=== PATIENT | male | born 1960 | race Caucasian/White ===

== ENCOUNTER 2017-02-18 03:30 | Emergency (ER) | payer OTHER ==
--- NOTE | 2017-02-18 03:42 | PDOC ---
History of Present Illness - General Chief Complaint: Urinary Problem Stated Complaint: UNABLE TO VOID History Source: Patient Exam Limitations: No Limitations - History of Present Illness Initial Comments: 02/18/17 03:39 This is a 48-year-old male who comes in complaining of unable to void. Patient last voided about 200 last night. Patient had elevated prostate biopsy today. Patient otherwise denies any fevers or chills. Band-Aid is healthy. patient has a history of similar problems in the past but have never required a Morales. Patient said he usually is able to relax and then able to void. PAST MEDICAL HISTORY: no significant history PAST SURGICAL HISTORY: no significant history FAMILY HISTORY: no pertinant history SOCIAL HISTORY: Pt lives with family and is employed. MEDICATIONS: reviewed ALLERGIES: As per nursing notes Review of Systems General: No fevers or chills, no weakness, no weight loss HEENT: No change in vision. No sore throat,. No ear pain CardioVascular: No chest pain or shortness of breath Respiratory:No cough, or wheezing. Gastrointestinal: no nausea, vomitting, diarrhea or constipation, No rectal bleeding Genitourinary: No dysuria, hematuria, or frequency, unable to void Musculoskeletal: No joint or muscle pain or swelling Neurologic: No headache, vertigo, dizziness or loss of consciousness Psychiatric: nor depression Skin: No rashes or easy bruising Endocrine: no increased thirst or abnormal weight change Allergic: no skin or latex allergy All other systems reviewed and normal GENERAL: The patient is awake, alert, and fully oriented, in no acute distress. HEAD: Normal with no signs of trauma. EYES: Pupils equal, round and reactive to light, extraocular movements intact, sclera anicteric, conjunctiva clear. EXTREMITIES: Normal range of motion, no edema. NEUROLOGICAL: Normal speech, normal gait. PSYCH: Normal mood, normal affect. SKIN: Warm, Dry, normal turgor, no rashes or lesions noted. Past History - Past Medical History Allergies/Adverse Reactions: Allergies Allergy/AdvReac Type Severity Reaction Status Date / Time Penicillins Allergy Verified 02/18/17 03:34 Home Medications: Ambulatory Orders Lisinopril [Zestril] 10 mg PO DAILY 02/18/17 Simvastatin [Zocor] 10 mg PO HS 02/18/17 *DC/Admit/Observation/Transfer Diagnosis at time of Disposition: Acute urinary retention - Discharge Dispostion Disposition: HOME Condition at time of disposition: Stable Admit: No - Patient Instructions Additional Instructions: Leave the Morales in until you see your urologist. Return to the emergency department immediately with ANY new, persistent or worsening symptoms. Continue any medications as previously prescribed by your physician. You should follow up with your urologist as soon as possible regarding today's emergency department visit. . Please make sure your doctor reviews the results of your emergency evaluation. Thank you for coming to the Emergency Department today for your care. It was a pleasure to see you today. Please note that your evaluation is INCOMPLETE until you follow-up with your doctor.
[2017-02-18 03:50] VITALS: BP 163/100; PULSE 81; TEMP 97.7; BMI 29.0
[2017-02-18 07:08] LABS: URINE BILIRUBIN Negative (NEGATIVE); URINE GLUCOSE (UA) Negative (NEGATIVE); URINE KETONE Negative (NEGATIVE); URINE LEUK ESTERASE Negative (NEGATIVE); URINE NITRITE Negative (NEGATIVE); URINE PROTEIN Trace (NEGATIVE); URINE UROBILINOGEN 0.2 (0.2-1.0)
[2017-02-18 07:17] LABS: URINE APPEARANCE CLOUDY; URINE BLOOD 3+ (NEGATIVE); URINE COLOR YELLOW
[2017-02-18 08:24] LABS: URINE BACTERIA RARE /hpf (NEGATIVE); URINE RBC >50 /hpf (0-3); URINE WBC 0-2 (3-5)
== END 2017-02-18 04:08 | disposition home or self-care (01) ==
LOC: FER 03:30
PROC: 0T9B70Z Drainage of Bladder with Drainage Device, Via Natural or Artificial Opening (ICD-10-PCS; principal; 2017-02-18)
DX: R33.8 Other retention of urine (principal)
CPT/HCPCS: 81003; 81015; 87086; 99282-25

== ENCOUNTER 2017-02-22 02:57 | Emergency (ER) | payer OTHER ==
--- NOTE | 2017-02-22 03:00 | PDOC ---
History of Present Illness - General Chief Complaint: Urinary Problem Stated Complaint: I CANT URINATE Time Seen by Provider: 02/22/17 03:00 - History of Present Illness Initial Comments: 02/22/17 03:17 This 56-year-old man with a history of BPH /prostate fusion biopsy on 02/17 and subsequent placement of urinary catheter that night for retention, presents with several hour history of suprapubic discomfort/sensation that he is not emptying his bladder. Patient saw his urologist (Dr. Tate) earlier today ( in a.m.); urinary catheter was removed in the office. Throughout the day, the patient was able to urinate with last episode of urination at approximately 10 PM. He awakened a few hours prior to presentation in the ER with sensation that he could not urinate and increasing discomfort in his lower abdomen. He denies dysuria/hematuria except for small amount of blood (no clots) at start of urination earlier this evening. No nausea/vomiting. He has a sensation of rectal urgency and has had a few small bowel movements in the last several hours. No diarrhea or blood in stool. Patient had been taking daily Doxazosin as prescribed by his urologist; on the advice of the covering urologist denis, he took a second dose just prior to presentation. Meds as noted below PMH Hypertension Hyperlipidemia BPH ALLERGIES Penicillin Past History - Past Medical History Allergies/Adverse Reactions: Allergies Allergy/AdvReac Type Severity Reaction Status Date / Time Penicillins Allergy Verified 02/22/17 02:59 Home Medications: Ambulatory Orders Lisinopril [Zestril] 10 mg PO DAILY 02/18/17 Simvastatin [Zocor] 10 mg PO HS 02/18/17 Doxazosin Mesylate [Cardura -] 1 mg PO DAILY 02/22/17 Disorders: Yes (BPH) HTN: Yes HIV: Yes - Psycho/Social/Smoking Cessation Hx Anxiety: No Suicidal Ideation: No Smoking History: Never smoked Review of Systems - Review of Systems Able to Perform ROS?: Yes Comments:: 12 point review of systems is negative except for what is noted in the history of present illness *Physical Exam - Physical Exam Comments: GENERAL: Adult male, in moderate distress secondary to suprapubic discomfor HEAD: Normal with no signs of trauma. EYES: PERRLA, EOMI, sclera anicteric, conjunctiva clear. ENT: Dry mucous membranes. LUNGS: Breath sounds equal, clear to auscultation bilaterally. No wheezes, and no crackles. HEART:Regular rate and rhythm, normal S1 and S2 without murmur, rub or gallop. ABDOMEN:.normal bowel sounds; moderate lower abdominal distention; mild tenderness without peritoneal signs NEUROLOGICAL: Cranial nerves II through XII grossly intact. Normal speech. No focal neurological deficits. MUSCULOSKELETAL: Back non-tender to palpation, no CVA tenderness SKIN: Warm, Dry, normal turgor, no rashes or lesions noted. Progress Note - Progress Note Progress Note: Under sterile technique, urinary catheter inserted by nursing staff without difficulty Approximately 800 mL of clear yellow urine obtained with relief of symptoms. Urine sent for culture and sensitivity Patient was discharged with a leg bag in place. He will call his urologist in the morning for follow-up appointment. He should return to the emergency room if he has any recurrence of his abdominal distention/suprapubic discomfort or if he develops fever *DC/Admit/Observation/Transfer Diagnosis at time of Disposition: Acute urinary retention - Discharge Dispostion Disposition: HOME Condition at time of disposition: Stable - Referrals Referrals: Dom Tate [Non Staff, Medical] - Call tomorrow - Patient Instructions Printed Discharge Instructions: DI for Urinary Retention in Men Additional Instructions: Keep catheter/leg bag in place Call Dr. Tate in the morning and follow-up as arranged Return to ER if you have recurrent distention/discomfort
[2017-02-22 03:08] VITALS: PULSE 103; TEMP 98; BMI 29.0
[2017-02-22 03:47] VITALS: BP 142/98
== END 2017-02-22 03:48 | disposition home or self-care (01) ==
LOC: FER 02:57
PROC: 0T9B70Z Drainage of Bladder with Drainage Device, Via Natural or Artificial Opening (ICD-10-PCS; principal; 2017-02-22)
DX: R33.9 Retention of urine, unspecified (principal); N40.0 Benign prostatic hyperplasia without lower urinary tract symptoms; I10 Essential (primary) hypertension; Z21 Asymptomatic human immunodeficiency virus [HIV] infection status
CPT/HCPCS: 87086; 99281-25

== ENCOUNTER 2017-02-25 02:28 | Emergency (ER) | payer OTHER ==
[2017-02-25 02:45] VITALS: TEMP 97.9; BMI 30.7
--- NOTE | 2017-02-25 02:53 | PDOC ---
History of Present Illness - General Chief Complaint: Urinary Problem Stated Complaint: URINARY RETENTION Time Seen by Provider: 02/25/17 02:31 - History of Present Illness Initial Comments: This 56-year-old man with a history of BPH/hypertension, and s/p fusion biopsy of prostate 02/17 presents with recurrent urinary retention. Patient was seen overnight on 02/21 with symptoms consistent with urinary retention. Urinary catheterization at that time revealed 800 mL urine in bladder. Patient was seen by his urologist, Dr. Tate earlier today and catheter was removed at approximately 9 AM. Subsequently during the day, he experienced "dribbling" of urine when attempting to empty his bladder. He remained comfortable however and when he contacted his urologist during the afternoon, decided to wait to see if he could fully empty his bladder through the evening. Patient was awakened about an hour prior to presentation with marked discomfort and lower abdominal distention. He denies dysuria/hematuria (other than small amount of blood seen at beginning of urination earlier)/fever Past History - Past Medical History Allergies/Adverse Reactions: Allergies Allergy/AdvReac Type Severity Reaction Status Date / Time Penicillins Allergy Verified 02/22/17 02:59 Home Medications: Ambulatory Orders Lisinopril [Zestril] 10 mg PO DAILY 02/18/17 Simvastatin [Zocor] 10 mg PO HS 02/18/17 Doxazosin Mesylate [Cardura -] 1 mg PO DAILY 02/22/17 Disorders: Yes (BPH) HTN: Yes HIV: Yes - Psycho/Social/Smoking Cessation Hx Anxiety: No Suicidal Ideation: No Smoking History: Never smoked Have you smoked in the past 12 months: No Information on smoking cessation initiated: No Hx Alcohol Use: No Drug/Substance Use Hx: No Substance Use Type: None Review of Systems - Review of Systems Able to Perform ROS?: Yes Comments:: 12 point review of systems is negative except for what is noted in the history of present illness *Physical Exam - Vital Signs Last Vital Signs Temp Pulse Resp BP Pulse Ox 97.9 F 90 16 172/113 99 02/25/17 02:30 02/25/17 02:30 02/25/17 02:30 02/25/17 02:30 02/25/17 02:30 - Physical Exam Comments: GENERAL: Adult male, in moderate distress secondary to lower abdominal distention/discomfort ABDOMEN:.normal bowel sounds No guarding,tenderness or rebound.Lower abdominal distention. EXTREMITIES: Normal range of motion, no edema. No clubbing or cyanosis. No erythema, or tenderness. NEUROLOGICAL: Cranial nerves II through XII grossly intact. Normal speech. No focal neurological deficits. MUSCULOSKELETAL: Back non-tender to palpation, no CVA tenderness SKIN: Warm, Dry, normal turgor, no rashes or lesions noted. Progress Note - Progress Note Progress Note: #16 F urinary catheter inserted without difficulty by nursing staff. Approximately 700 mL of clear yellow urine obtained. Patient had immediate relief in his symptoms. Sample sent for urine culture and sensitivity. Patient had received 1 tablet of Cipro at urologists office earlier today. Will defer any other antibiotic use pending patient's follow-up with his urologist. blood pressure still moderately elevated at 160/105 (though improved triage as compared to triage reading). Patient states that his blood pressure in the urologist's office was 1:30/70. He has been taking his lisinopril as prescribed. Patient will follow-up with urologist, calling him this coming morning. Meanwhile, he will keep urinary catheter and leg bag in place. He should return to the emergency room if he experiences recurrent abdominal distention/ discomfort or develops fever/chills. *DC/Admit/Observation/Transfer Diagnosis at time of Disposition: Acute urinary retention - Discharge Dispostion Disposition: HOME Condition at time of disposition: Stable - Referrals Referrals: Parminder Acosta [Primary Care Provider] - Dom Tate [Non Staff, Medical] - Call tomorrow - Patient Instructions Printed Discharge Instructions: DI for Urinary Retention in Men Additional Instructions: Keep catheter in place Call Dr. Tate in the morning and follow-up as scheduled Return to ER if you have recurrent abdominal distention/pain or if you develop fever
[2017-02-25 03:01] VITALS: BP 160/105; PULSE 85
== END 2017-02-25 03:01 | disposition home or self-care (01) ==
LOC: FER 02:28
PROC: 0T9B70Z Drainage of Bladder with Drainage Device, Via Natural or Artificial Opening (ICD-10-PCS; principal; 2017-02-25)
DX: R33.9 Retention of urine, unspecified (principal); Z21 Asymptomatic human immunodeficiency virus [HIV] infection status; I10 Essential (primary) hypertension; N40.0 Benign prostatic hyperplasia without lower urinary tract symptoms
CPT/HCPCS: 87086; 99282-25

== ENCOUNTER 2019-05-22 04:41 | Emergency (ER) | payer OTHER ==
[2019-05-22 04:47] VITALS: PULSE 86; TEMP 98.4; BMI 29.8
--- NOTE | 2019-05-22 04:58 | PDOC ---
History of Present Illness - General Chief Complaint: Urinary Problem Stated Complaint: UNABLE TO URINATE Time Seen by Provider: 05/22/19 04:53 History Source: Patient Exam Limitations: No Limitations - History of Present Illness Initial Comments: 05/22/19 04:53 unable to urinate Timing/Duration: reports: getting worse Quality: reports: moderate Abdominal Pain Onset Location: reports: suprapubic Pain Radiation: reports: no radiation Activities at Onset: reports: none. denies: exertion Treatment Prior to Arrive: worse with: analgesics Aggravating Factors: improves with: Change in position Alleviating Factors: improves with: Defecation Past History - Past Medical History Allergies/Adverse Reactions: Allergies Allergy/AdvReac Type Severity Reaction Status Date / Time Penicillins Allergy Verified 05/22/19 04:42 Home Medications: Ambulatory Orders Lisinopril [Zestril] 10 mg PO DAILY 02/18/17 Simvastatin [Zocor] 10 mg PO HS 02/18/17 COPD: No Disorders: Yes (BPH) HTN: Yes Hypercholesterolemia: Yes - Psycho Social/Smoking Cessation Hx Smoking History: Never smoked Have you smoked in the past 12 months: No Information on smoking cessation initiated: No Hx Alcohol Use: Yes Drug/Substance Use Hx: No Substance Use Type: None Review of Systems - Review of Systems All Other Systems: Reviewed and Negative *Physical Exam - Vital Signs Last Vital Signs Temp Pulse Resp BP Pulse Ox 98.4 F 86 18 182/112 H 99 05/22/19 04:44 05/22/19 04:44 05/22/19 04:44 05/22/19 04:44 05/22/19 04:44 - Physical Exam General Appearance: Yes: Mild Distress HEENT: positive: Normal Voice Respiratory/Chest: negative: Respiratory Distress, Labored Respiration Cardiovascular: positive: Regular Rate Gastrointestinal/Abdominal: positive: Distended, Tenderness Lymphatic: negative: Adenopathy Musculoskeletal: positive: Normal Inspection Extremity: positive: Normal Capillary Refill Integumentary: positive: Normal Color Neurologic: positive: Normal Response Medical Decision Making - Medical Decision Making 05/22/19 04:55 urinary retention bladder catheterized with relief of symptoms Discharge - Discharge Information Problems reviewed: Yes Clinical Impression/Diagnosis: Acute urinary retention Condition: Stable Disposition: HOME - Follow up/Referral Referrals: Parminder Acosta [Primary Care Provider] - - Patient Discharge Instructions Patient Printed Discharge Instructions: DI for Urinary Retention in Men - Post Discharge Activity
[2019-05-22 05:13] VITALS: BP 154/97
== END 2019-05-22 05:18 | disposition home or self-care (01) ==
LOC: FER 04:41
PROC: 0T9B70Z Drainage of Bladder with Drainage Device, Via Natural or Artificial Opening (ICD-10-PCS; principal; 2019-05-22)
DX: R33.9 Retention of urine, unspecified (principal); N40.0 Benign prostatic hyperplasia without lower urinary tract symptoms; I10 Essential (primary) hypertension; E78.00 Pure hypercholesterolemia, unspecified; Z88.0 Allergy status to penicillin
CPT/HCPCS: 99282-25